=== PATIENT | female | born 1990 | race Caucasian/White ===

== ENCOUNTER 2016-07-11 17:56 | Emergency (ER) ==
[2016-07-11 18:14] VITALS: BP 129/80
--- NOTE | 2016-07-11 19:01 | PROVIDER DOCUMENTATION ---
HPI-General Adult - General Source: patient - History of Present Illness -Gen Adult Nature of Presenting Problems: 26 y/o female presents to the ER with complaint tooth pain and mouth pain. Pt states that she had wisdom tooth pulled on . Pt states pain got worse overnight, and ran out of [place] pain medicine today. Location of Pain/Injury: reports: face (Left), mouth (left upper wisdom tooth), neck (left) Quality of Pain: reports: aching Onset/Duration: reports: 2 days ago (wisdome tooth surgery) Timing: reports: still present - General Chief Complaint: Toothache Stated Complaint: POST OP COMPLAINT(MOUTH PAIN) Time Seen by Provider: 07/11/16 18:26 Allergies/Adverse Reactions: Patient Allergies Allergy/AdvReac Type Severity Reaction Status Date / Time tramadol Allergy NAUSEA/VOMI Verified 05/13/15 21:25 TING Home Medications: Home Medication List Medication Instructions Recorded Confirmed Last Taken Type Amoxicillin 500 mg PO TID #21 capsule 07/11/16 Unknown Rx Naproxen 500 mg PO BID AC PRN #14 tablet 07/11/16 Unknown Rx Review of Systems - Adult - REVIEW OF SYSTEMS - ADULT Constitutional: denies: chills, fever Eyes: reports: no symptoms reported Ears, Nose, Mouth & Throat: reports: mouth/dental pain (wisdome tooth sx x 2 days ago), mouth swelling, throat swelling Cardiovascular: reports: no symptoms reported Respiratory: reports: no symptoms reported Gastrointestinal: reports: no symptoms reported Genitourinary: reports: no symptoms reported Musculoskeletal: reports: no symptoms reported Integumentary: reports: no symptoms reported Neurological: reports: no symptoms reported Psychiatric: reports: no symptoms reported Endocrine: reports: no symptoms reported Hematologic/Lymphatic: reports: no symptoms reported Allergic/Immunologic: reports: no symptoms reported All Other Systems: Reviewed and Negative Past History - Adult - PAST MEDICAL HISTORY-ADULT Review of Records: reports: Nursing Assessment Review, Medications Reviewed Psychiatric: reports: anxiety, ptsd, other (pseudoseizures) - PRIOR SURGERIES/PROCEDURES Surgical/Procedure History: reports: , tonsillectomy - IMMUNIZATION STATUS Childhood Immunizations: See Nurse Assessment Flu Vaccine: See Nurse Assessment Physical Exam-General - CONSTITUTIONAL General Appearance: alert, mild distress - EYES Eyes: PERRL/EOMI, pink conjunctivae - HEAD, EARS, NOSE, MOUTH & THROAT HENMT: dental decay, other (left wisdom tooth removal) - NECK Neck: full range of motion, supple - RESPIRATORY Respiratory: lungs clear, normal breath sounds - CARDIOVASCULAR Cardiovascular: normal peripheral pulses, regular rate, rhythm - MUSCULOSKELETAL Back Exam: normal inspection, no CVA tenderness Extremity: non-tender, normal gait - SKIN Integumentary: normal color, warm/dry - NEUROLOGIC Neurologic: grossly normal, no motor/sensory deficits - PSYCHIATRIC Psych/Mental Status: normal mood/affect, normal thought content, normal thought process, oriented x 3 Progress - PLAN OF CARE/RESULTS Progress/Plan/Lab Results: Vital Signs - 24 hr 07/11/16 18:11 Temperature 98 F Pulse Rate 93 H Respiratory 18 Rate Blood Pressure 129/80 O2 Sat by Pulse 98 Oximetry Departure - Departure Time of Disposition Order: 19:09 Certified Medical Emergency: Emergent - Departure DIAGNOSIS: Tooth ache Disposition: HOME 01 Condition: Stable Prescriptions: Amoxicillin 500 mg PO TID #21 capsule Naproxen 500 mg PO BID AC PRN #14 tablet PRN Reason: Pain Referrals: None,PCP [Primary Care Provider] - Forms: Return to School/Parent Work Instructions: Amoxicillin capsules or tablets, Naproxen and naproxen sodium oral immediate-release tablets, Dental Pain, [id number] Attestation - Scribe Verification/Attestation Scribe:: Jessica Quinonez Acting as Scribe for:: Reilly Muhammad Scribe documention review:: This chart was documented by a scribe and accurately reflects the service the provider performed and the decisions made by the provider. Physician Attestation
== END 2016-07-11 19:21 | disposition home or self-care (01) ==
LOC: P.ED 17:56
DX: K08.89 Other specified disorders of teeth and supporting structures (principal); Z98.818 Other dental procedure status; R22.1 Localized swelling, mass and lump, neck
CPT/HCPCS: 99281

== ENCOUNTER 2016-07-16 14:01 | Emergency (ER) ==
[2016-07-16] MEDS ORDERED: NS 1,000 ML IV ONE (14:31)
[2016-07-16] MEDS ORDERED: ZOFRAN IV ONE (14:31)
[2016-07-16] MEDS ORDERED: MORPHINE IV ONE (14:31)
--- NOTE | 2016-07-16 14:37 | PROVIDER DOCUMENTATION ---
HPI-General Adult - General Source: patient - History of Present Illness -Gen Adult Nature of Presenting Problems: 26 yo WF presents to ED with chief complaint of abdominal pain after falling onto her stomach while walking. Pt had a tubal ligation surgery 2 days ago and gave to her son 11 weeks ago. Pt reports that she fell trying to get to the baby, who was crying, by tripping over a carseat. She reports that her pain has been persistent since her procedure but that the fall increased it. She reports that her navel incision also opened up and bled when she fell. She presents to ED with crusted blood around the area. Upon arrival to ED, pt's cheeks are flushed red, and her lips and mucus membranes appear dry. She appears moderately distressed but does not have a fever. Location of Pain/Injury: reports: abdomen (Navel incision from tubal ligation peformed 2 days ago opened and bled after pt fell on her stomach after she tripped over a carseat to get to her 11-week-old infant.) Severity: reports: moderate, severe (Pt reports /) Onset/Duration: reports: abrupt, just prior to arrival Timing: reports: still present Context/Activities at Onset: reports: light activity Modifying Factors: improves with: rest. worse with: massage, palpation Associated Symptoms: reports: anxiety (Pt reports new prescription of Xanax (3 days)), trouble walking (Painful to move). denies: dizziness, shortness of breath, swelling/mass in abdomen Similar Symptoms Previously?: No Recently seen or treated by another doctor?: Yes (Dr. Flores performed tubal ligation Wednesday) <Shazia Tan - Last Filed: 07/16/16 16:19> <Onofre Ha - Last Filed: 07/16/16 16:40> - General Chief Complaint: Fall Stated Complaint: fall Time Seen by Provider: 07/16/16 14:17 Allergies/Adverse Reactions: Patient Allergies Allergy/AdvReac Type Severity Reaction Status Date / Time No Known Allergies Allergy Verified 07/16/16 14:07 Home Medications: Home Medication List Medication Instructions Recorded Confirmed Last Taken Type Oxycodone HCl/Acetaminophen 5 mg PO 07/16/16 Unknown History [Percocet 5-325 mg Tablet] Sulfamethoxazole/Trimethoprim 1 each PO BID #20 tablet 07/16/16 Unknown Rx [Bactrim Ds Tablet] Review of Systems - Adult - REVIEW OF SYSTEMS - ADULT Constitutional: reports: no symptoms reported. denies: chills, fever Eyes: reports: no symptoms reported. denies: blurred vision, double vision Ears, Nose, Mouth & Throat: reports: no symptoms reported. denies: ear pain, sinus problem Cardiovascular: reports: no symptoms reported. denies: chest pain, irregular heart rate Respiratory: reports: no symptoms reported. denies: cough, wheezing Gastrointestinal: reports: abdominal pain (at site of tubal ligation navel incision and generalized tenderness; pt has 11-week-old infant) Genitourinary: reports: no symptoms reported. denies: dysuria, flank pain Musculoskeletal: reports: no symptoms reported. denies: bone pain, back pain Integumentary: reports: other (tubal ligation navel incision opened and bled some after fall on her stomach while walking) Neurological: reports: no symptoms reported. denies: ataxia, dizziness/vertigo Psychiatric: reports: no symptoms reported. denies: depression, emotional problems Endocrine: reports: no symptoms reported. denies: cold intolerance, heat intolerance Hematologic/Lymphatic: reports: no symptoms reported. denies: low blood count, prolonged bleeding Allergic/Immunologic: reports: no symptoms reported. denies: allergic reactions , eczema All Other Systems: Reviewed and Negative <Shazia Tan - Last Filed: 07/16/16 16:19> Past History - Adult - PAST MEDICAL HISTORY-ADULT Review of Records: reports: Old Records Reviewed, Nursing Assessment Review, Medications Reviewed Major Childhood Illnesses: reports: denies history Cardiovascular: reports: denies history Respiratory: reports: denies history Gastrointestinal: reports: denies history Obstetrical/Gynecological: reports: denies history Genitourinary: reports: denies history Musculoskeletal: reports: denies history Neurological: reports: denies history - PRIOR SURGERIES/PROCEDURES Surgical/Procedure History: reports: recent surgery (tubal ligation 2 days ago) - IMMUNIZATION STATUS Childhood Immunizations: See Nurse Assessment Flu Vaccine: See Nurse Assessment - FAMILY HISTORY Family History: reviewed, not pertinent - SOCIAL HISTORY Living Situation: family <Shazia Tan - Last Filed: 07/16/16 16:19> Physical Exam-General - PHYSICAL EXAM-ADULT Initial Vital Signs Reviewed: Yes - CONSTITUTIONAL General Appearance: alert, moderate distress - EYES Eyes: PERRL/EOMI, pink conjunctivae - HEAD, EARS, NOSE, MOUTH & THROAT HENMT: normocephalic/atraumatic. negative: moist mucous membranes (Pt looks dry ) - NECK Neck: non-tender, full range of motion, supple - RESPIRATORY Respiratory: no respiratory distress, no accessory muscle use - CARDIOVASCULAR Cardiovascular: normal peripheral pulses, regular rate, rhythm - GASTROINTESTINAL (ABDOMEN) Abdominal Exam: soft, tenderness (Pt had tubal ligation 2 days ago and fell today on her stomach, opening the small incision by her navel.) - LYMPHATIC Lymphatic: no adenopathy - MUSCULOSKELETAL Back Exam: normal inspection, no vertebral tenderness Extremity: normal range of motion, non-tender - SKIN Integumentary: other (Pt's cheeks are flushed red) - NEUROLOGIC Neurologic: grossly normal, no motor/sensory deficits - PSYCHIATRIC Psych/Mental Status: normal mood/affect, normal thought content, normal thought process, oriented x 3 <Shazia Tan - Last Filed: 07/16/16 16:19> Progress - CT/MRI 1 CT Study: Abdomen, Pelvis Impression: Normal CT Results: NAD <Shazia Tan - Last Filed: 07/16/16 16:19> Departure <Shazia Tan - Last Filed: 07/16/16 16:19> - Departure Time of Disposition Order: 16:39 Certified Medical Emergency: Emergent <Js Hamohit X - Last Filed: 07/16/16 16:40> - Departure DIAGNOSIS: Post-op pain UTI (urinary tract infection) Qualifiers: Urinary tract infection type: acute cystitis Hematuria presence: without hematuria Qualified Code(s): N30.00 - Acute cystitis without hematuria Disposition: HOME 01 Condition: Stable Additional Instructions: Follow up with [facility] as scheduled. Return to ER if your symptoms worsen. Prescriptions: Sulfamethoxazole/Trimethoprim [Bactrim Ds Tablet] 1 each PO BID #20 tablet Referrals: None,PCP [Primary Care Provider] - Al Morrell MD [STAFF PHYSICIAN] - Forms: Return to School/Parent Work Instructions: Sulfamethoxazole; Trimethoprim, SMX-TMP tablets Attestation - Scribe Verification/Attestation Scribe:: Shazia Tan Acting as Scribe for:: Onofre Ha Scribe documention review:: This chart was documented by a scribe and accurately reflects the service the provider performed and the decisions made by the provider. - Physician/ DANIEL Attestation Patient care was provided by Advanced Practice Provider:: No <Shazia Tan - Last Filed: 07/16/16 16:19> Physician Attestation
[2016-07-16 14:39] LABS: MANUAL DIFF NEEDED? NO
[2016-07-16 14:49] LABS: HEMATOCRIT 39.5 % (37.0-47.0); HEMOGLOBIN 13.3 g/dL (12.0-16.0); LYMPH% 39.5 % (20.5-51.1); MCH 29.2 PG (27-31); MCHC 33.7 g/dL (33-37); MCV 86.8 FL (81-99); MPV 9.8 FL (7.4-10.4); NEUT% 53.9 % (42.2-75.2); PLT 276 X1000 (130-400); RBC 4.55 XMIL (4.2-5.4)
[2016-07-16 14:50] LABS: BASO% 0.3 % (0.0-0.8); EOS# 0.15 X1000 (0.0-0.7); EOS% 1.2 % (0.0-10.0); IMM GRAN# 0.04 X1000 (0.0-0.04); IMM GRAN% 0.3 % (0.0-0.5); LYMPH# 4.84 X1000 (1.2-3.4); MONO# 0.59 X1000 (0.11-0.59); MONO% 4.8 % (1.7-9.3)
[2016-07-16 15:06] LABS: AGAP 13; ALBUMIN 4.5 g/dL (3.5-5.0); ALKALINE PHOSPHATASE 74 U/L (32-104); AMYLASE 67 U/L (20-200); BUN 8 mg/dL (8-22); CALCIUM 10.4 mg/dL (8.8-10.2); CHLORIDE 103 mmol/L (98-107); COSMO 278; GOT 19 U/L (10-30); GPT 23 U/L (10-36); LIPASE 42 U/L (13-60); POTASSIUM 3.9 mmol/L (3.5-5.1); SODIUM 140 mmol/L (136-145); TCO2 24 mmol/L (25-35); TOTAL PROTEIN 7.6 g/dL (6.3-8.3)
[2016-07-16 15:39] LABS: URINE CULTURE PL NEEDED? NO; URINE SOURCE CLEAN CATCH
[2016-07-16 15:49] LABS: BILIRUBIN URINE NEGATIVE (NEGATIVE); BLOOD URINE NEGATIVE (NEGATIVE); CLARITY SL. CLOUDY (CLEAR); COLOR YELLOW; GLUCOSE URINE NEGATIVE (NEGATIVE); LEUKOCYTES URINE NEGATIVE (NEGATIVE); NITRITE URINE NEGATIVE (NEGATIVE); PROTEIN URINE NEGATIVE (NEGATIVE); UR AMPHETAMINES QUAL NONE DETECTED (NONE DETECT); UR BARBITUATES QUAL NONE DETECTED (NONE DETECT); UR BENZODIAZEPIN QUAL PRESUMPTIVE POSITIVE (NONE DETECT); UR COCAINE QUAL NONE DETECTED (NONE DETECT); UR MDMA QUAL NONE DETECTED (NONE DETECT); UR METHADONE QUAL NONE DETECTED (NONE DETECT); UR METHAMPHETAMINE QUAL NONE DETECTED (NONE DETECT); UR OPIATES QUAL PRESUMPTIVE POSITIVE (NONE DETECT); UR OXYCODONE QUAL PRESUMPTIVE POSITIVE (NONE DETECT); UR PCP QUAL NONE DETECTED (NONE DETECT); UR TCA QUAL NONE DETECTED (NONE DETECT); UROBILINOGEN URINE NORMAL
[2016-07-16 15:50] LABS: UR CANNABINOIDS QUAL NONE DETECTED (NONE DETECT)
[2016-07-16 16:08] LABS: URINE EPITHELIAL CELLS >10 /HPF (<10)
--- NOTE | 2016-07-16 16:09 | Diag Imaging Result Document ---
PROCEDURE NAME: CT ABD/PELVIS W/ IV CONT ONLY - 07/16/2016 CT ABDOMEN AND PELVIS WITH INTRAVENOUS CONTRAST: COMPARISON: None. FINDINGS: The lung bases are clear. Heart size is normal with no pericardial effusion. The liver, gallbladder, spleen, pancreas, adrenals, and kidneys are normal. No bowel obstruction or inflammation. Normal appendix. Urinary bladder, uterus, and rectum are normal. Bony structures are intact. IMPRESSION: Negative exam.
[2016-07-16 16:34] VITALS: BP 109/76
[2016-07-16] MEDS ORDERED: DERMABOND ONE (17:09)
== END 2016-07-16 17:16 | disposition home or self-care (01) ==
LOC: P.ED 14:01 → MERGE 14:01 → P.ED 17:16
DX: G89.18 Other acute postprocedural pain (principal); T81.31XA Disruption of external operation (surgical) wound, not elsewhere classified, initial encounter; N30.00 Acute cystitis without hematuria; W18.09XA Striking against other object with subsequent fall, initial encounter
CPT/HCPCS: 74177; 80053; 80305; 81001; 82150; 83690; 85025; 96361; 96374; 96375; J2270; J2405; J7030; Q9967